=== PATIENT | female | born 1970 | race African-American/Black ===

== ENCOUNTER → 2019-03-29 | Outpatient (CLI) | payer OTHER | LOC: YHH 10:49 ==

== ENCOUNTER 2020-12-17 16:24 | Emergency (ER) | payer OTHER ==
[2020-12-17 16:31] VITALS: BP 154/71; PULSE 96; TEMP 98.9; BMI 23.0
== END 2020-12-17 18:41 | disposition home or self-care (01) ==
LOC: JER 16:24
DX: Z46.59 Encounter for fitting and adjustment of other gastrointestinal appliance and device (principal)
CPT/HCPCS: 74018-TC-FY; 99283-25

== ENCOUNTER 2025-01-23 08:05 | Emergency (ER) | payer OTHER ==
[2025-01-23 08:16] VITALS: BP 107/66; PULSE 72; RESP 18; TEMP 98.6; BMI 23.0
== END 2025-01-23 10:00 | disposition home or self-care (01) ==
LOC: JER 08:05
PROC: 0D20XUZ Change Feeding Device in Upper Intestinal Tract, External Approach (ICD-10-PCS; principal; 2025-01-23)
DX: K94.23 Gastrostomy malfunction (principal)
CPT/HCPCS: 74018-TC-FY; 99284-25

== ENCOUNTER 2025-01-23 16:11 | Emergency (ER) | payer OTHER ==
[2025-01-23 16:16] VITALS: BP 103/61; PULSE 69; RESP 18; TEMP 98.2; BMI 24.7
== END 2025-01-23 18:10 | disposition home or self-care (01) ==
LOC: JER 16:11
DX: K94.23 Gastrostomy malfunction (principal)
CPT/HCPCS: 99283-25